=== PATIENT | female | born 1985 | race Caucasian/White ===

== ENCOUNTER → 2022-01-09 13:44 | Outpatient (CLI) | payer OTHER, SELFPAY ==
--- NOTE | 2022-01-09 13:49 | DI.US.S_ITS ---
PROCEDURE: US OB <= 14 WEEKS FETUS INDICATIONS: DATING AND VIABILITY OUTSIDE/PRIOR DATING DATA: Last menstrual period (LMP): 10/25/2021. LMP-based estimated date of delivery (BETTYE): 08/01/2022. First dating scan (date and location): 01/09/2022. Estimated date of delivery (BETTYE) from first dating scan: 08/01/2022 The calculations are made using the ultrasound BETTYE of 08/01/2022. TECHNIQUE: Real-time scanning was performed of the fetus and maternal pelvic organs, with image documentation. Endovaginal scanning was also performed to better visualize the fetus and maternal ovaries. COMPARISON: None. FINDINGS: Gestational sac at the uterine fundus with mean diameter of 5 centimeters. Fetus in the gestational sac measures 4 centimeters crown-rump length. heart rate 169 beats per minute. Yolk sac noted. Ovaries normal. IMPRESSION: Single live intrauterine gestation, estimated gestational age 10 weeks 6 days. We strive to produce accurate, complete, and clear reports of imaging services. To assist us in improving patient care, this report was composed using standard report templates and voice recognition software. Therefore, it may contain abnormal punctuation, insertions and/or omissions. Occasional wrong-word or sound-alike substitutions may occur. Though we review the report and make efforts to correct it, we do recommend that the report be read carefully in proper context to recognize any text inaccuracies. Dictated by: Taye Rossi M.D. on 01/09/2022 at 15:04 Approved by: Taye Rossi M.D. on 01/09/2022 at 15:06
[2022-01-09 15:03] LABS: Add Manual Diff / Slide Review NO; Basophils Absolute Auto 100 /uL (0-100); Basophils Percent Auto 0.6 % (0-2); Eosinophils Absolute Auto 100 /uL (0-450); Eosinophils Percent Auto 1.1 % (2-4); Hemoglobin 14.7 g/dL (12.0-16.0); Lymphocytes Absolute Auto 2700 /uL (1100-4500); Lymphocytes Percent Auto 31.6 % (25-40); Mean Corpuscular HGB Conc 34.1 % (30-36); Mean Corpuscular Hemoglobin 31.7 PG (26-34); Mean Corpuscular Volume 93.2 fL (80-100); Monocytes Absolute Auto 700 /uL (0-900); Monocytes Percent Auto 7.6 % (3-14); Neutrophils Absolute Auto 5100 /uL (1500-7000); Neutrophils Percent Auto 59.1 % (50-75); Platelet Count 419 X10^3/uL (150-400); Red Blood Cell Count 4.62 X10^6/uL (4.0-5.2); Red Cell Distribution Width 12.5 % (11.6-14.8); White Blood Cell Count 8.6 X10^3/uL (4.5-11.0)
[2022-01-09 15:23] LABS: Appearance Urine UA CLEAR; Bilirubin Urine UA NEGATIVE (NEGATIVE); Color Urine UA YELLOW; Glucose Urine UA NEGATIVE (Negative); Ketones Urine UA NEGATIVE (NEGATIVE); Leukocyte Esterase Urine UA NEGATIVE (NEGATIVE); Nitrite Urine UA NEGATIVE (Negative); Occult Blood Urine UA 1+ (Negative); Protein Urine UA NEGATIVE (Negative); Urobilinogen Urine UA 0.2 E.U./dL (0.2)
[2022-01-09 15:24] LABS: pH Urine UA 6.5 (4.5-8.0)
[2022-01-09 15:33] LABS: Bacteria Urine Few (2-10); RBC Urine 1-5/HPF (0-5/HPF); Squamous Epithelial Cell Urine 1-5 /HPF (0-5/HPF); WBC Urine None Seen (0-5/HPF)
[2022-01-09 18:02] LABS: TSH w/ Reflex to FT4 2.09 uIU/mL (0.47-4.68)
[2022-01-09 18:33] LABS: Hepatitis B Surface Antigen NEGATIVE s/c (NEGATIVE)
[2022-01-09 19:25] LABS: HIV 1 & 2 Ab/Ag 4th Gen Combo NEGATIVE (NEGATIVE); Hep C Virus Ab w/Reflex Quant NEGATIVE s/c (NEGATIVE)
[2022-01-10 08:11] LABS: RPR Screen Non Reactive (Non Reactive); Varicella IgG Antibody <135 index (Immune >165)
== END ==
PROVIDERS: PCP Student in an Organized Health Care Education/Training Program; Referring Provider Obstetrics & Gynecology; Visit Provider Obstetrics & Gynecology
DX: O99.281 Endocrine, nutritional and metabolic diseases complicating pregnancy, first trimester (principal); E03.9 Hypothyroidism, unspecified; Z3A.10 10 weeks gestation of pregnancy
CPT/HCPCS: 36415; 76801; 76817; 80055; 81003; 81015; 84443; 86787; 86803; 86850; 86900; 86901; 87086; 87389

== ENCOUNTER → 2022-02-21 15:57 | Outpatient (CLI) | payer OTHER, SELFPAY ==
[2022-02-25 20:40] LABS: AFP, Serum 76.8 ng/mL (.); Estriol, Free 1.63 ng/mL (.); Inhibin A, Dimeric 119.44 pg/mL (.); Inhibin A, MoM 0.91 (.); Maternal Ethnicity Caucasian (.); Maternal Weight 191 lbs (.); Number of Fetuses No (.); OSBR Risk 1 IN 482 (.); Results Report (.); Test Results *Screen Negative* (.); hCG, MoM 1.13 (.); hCG, Serum 33026 mIU/mL (.)
== END ==
PROVIDERS: PCP Student in an Organized Health Care Education/Training Program; Referring Provider Obstetrics & Gynecology; Visit Provider Obstetrics & Gynecology
DX: Z34.92 Encounter for supervision of normal pregnancy, unspecified, second trimester (principal); Z3A.17 17 weeks gestation of pregnancy
CPT/HCPCS: 36415; 82105; 82677; 84702; 86336

== ENCOUNTER → 2022-03-18 07:38 | Outpatient (CLI) | payer OTHER, SELFPAY ==
--- NOTE | 2022-03-18 07:41 | DI.US.S_ITS ---
PROCEDURE: OB >= 14 WEEKS FETUS INDICATIONS: ANATOMY OUTSIDE/PRIOR DATING DATA: Last menstrual period (LMP): 10/25/2021 LMP-based estimated date of delivery (BETTYE): 08/01/2022. First dating scan (date and location): 01/09/2022 Estimated date of delivery (BETTYE) from first dating scan: 08/01/2022. TECHNIQUE: Real-time scanning was performed of the fetus, with image documentation and biometric measurements. Endovaginal scanning: Not indicated. COMPARISON: [facility], OB <= 14 WEEKS FETUS, 01/09/2022, 13:59. FINDINGS: General: A single living intrauterine gestation is present. Presentation: Vertex Placenta: Placental position is posterior, without previa. Amniotic fluid index: 11.6 cm, normal range is 5-24 cm. Single deepest vertical pocket is 3.3 cm. heart rate: 141 beats per minute. Maternal cervical canal: 4.8 cm long. Normal lower limit is 2.5 cm. biometrics: Biparietal diameter: 4.8 cm, 20 weeks, 3 days. Head circumference: 17.1 cm, 19 weeks, 5 days. Abdominal circumference: 15.4 cm, 20 weeks, 4 days. Femur length: 3.4 cm, 20 weeks, 5 days. Clinically estimated gestational age: 20 weeks, 4 days. Composite gestational age from present scan: 20 weeks, 3 days. Estimated weight and percentile: 360 g, 43%. Anatomic survey: Neuro: Ventricles are non-dilated at less than 10 mm. Cisterna magna is normal at 3-11 mm. Cerebellum is normal in size and morphology. Nuchal skin fold: Normal at less than 6 mm between 14-21 weeks gestational age. Face: Nose and lips, facial profile are not well seen. Spine: No evidence for spina bifida. Heart: 4-chambered heart is present. Possible echogenic focus is seen within left ventricular outflow tract. Right ventricular outflow tract is not well seen. Diaphragm: Diaphragm is intact. Stomach: Left-sided stomach is present. Kidneys: No hydronephrosis. Normal is less than 5 mm in 2nd trimester, less than 7 mm in 3rd trimester. Cord: 3-vessel cord has orthotopic insertion. Bladder: Normal in size. Extremities: All 4 extremities identified. IMPRESSION: 1. Single live intrauterine gestation with fetus in vertex presentation. heart rate is 141 beats per minute. Normal amount of amniotic fluid. Normal growth. Estimated weight is at 43%. 2. facial profile and right ventricular outflow tracts are not well seen on this study due to position. Possible echogenic focus within left ventricular outflow tract. 3. Rest of the anatomic survey is within normal limits. We strive to produce accurate, complete, and clear reports of imaging services. To assist us in improving patient care, this report was composed using standard report templates and voice recognition software. Therefore, it may contain abnormal punctuation, insertions and/or omissions. Occasional wrong-word or sound-alike substitutions may occur. Though we review the report and make efforts to correct it, we do recommend that the report be read carefully in proper context to recognize any text inaccuracies. Dictated by: Chema Austin M.D. on 03/18/2022 at 10:18 Approved by: Chema Austin M.D. on 03/18/2022 at 10:21
== END ==
PROVIDERS: PCP Student in an Organized Health Care Education/Training Program; Referring Provider Obstetrics & Gynecology; Visit Provider Obstetrics & Gynecology
DX: Z34.82 Encounter for supervision of other normal pregnancy, second trimester (principal); Z3A.20 20 weeks gestation of pregnancy
CPT/HCPCS: 76811

== ENCOUNTER → 2022-04-03 14:08 | Outpatient (CLI) | payer OTHER, SELFPAY ==
--- NOTE | 2022-04-03 14:09 | DI.US.S_ITS ---
PROCEDURE: US OB FOLLOW UP INDICATIONS: RE-EVALUATE ANATOMY OUTSIDE/PRIOR DATING DATA: Last menstrual period (LMP): 10/25/2021. LMP-based estimated date of delivery (BETTYE): 08/01/2022. First dating scan (date and location): 01/09/2022 at . Estimated date of delivery (BETTYE) from first dating scan: 08/01/2022. TECHNIQUE: Real-time scanning was performed of the fetus, with image documentation and biometric measurements. Endovaginal scanning: Not performed. COMPARISON: [facility], OB >= 14 WEEKS FETUS, 03/18/2022, 8:00. [facility], OB <= 14 WEEKS FETUS, 01/09/2022, 13:59. FINDINGS: General: A single living intrauterine gestation is present. Presentation: Vertex. Placenta: Placental position is posterior , without previa. Amniotic fluid index: 18.5 cm, normal range is 5-24 cm. Single deepest vertical pocket is 5.9 cm. heart rate: 141 beats per minute. Maternal cervical canal: 3.2 cm long. Normal lower limit is 2.5 cm. biometrics: Not performed Clinically estimated gestational age: 22 weeks 6 days Other: There is a four-chamber heart. There is a 3 mm echogenic focus in left ventricle. Normal left ventricular outflow tracts. facial profile not well seen secondary to lie. IMPRESSION: 1. A single living intrauterine gestation redemonstrated. 2. A 3 mm echogenic focus in left ventricle. Otherwise normal heart. 3. facial profile not well seen. 4. GERALD 18.5 cm. We strive to produce accurate, complete, and clear reports of imaging services. To assist us in improving patient care, this report was composed using standard report templates and voice recognition software. Therefore, it may contain abnormal punctuation, insertions and/or omissions. Occasional wrong-word or sound-alike substitutions may occur. Though we review the report and make efforts to correct it, we do recommend that the report be read carefully in proper context to recognize any text inaccuracies. Dictated by: Dino Brantley M.D. on 04/03/2022 at 17:06 Approved by: Dino Brantley M.D. on 04/03/2022 at 17:12
== END ==
PROVIDERS: PCP Student in an Organized Health Care Education/Training Program; Referring Provider Obstetrics & Gynecology; Visit Provider Obstetrics & Gynecology
DX: Z34.90 Encounter for supervision of normal pregnancy, unspecified, unspecified trimester (principal); Z3A.21 21 weeks gestation of pregnancy
CPT/HCPCS: 76816

== ENCOUNTER → 2022-05-20 08:50 | Outpatient (CLI) | payer OTHER, SELFPAY ==
[2022-05-20 15:23] LABS: Urine N gonorrhoeae NOT DETECTED
[2022-05-20 17:36] LABS: Urine Chlamydia NOT DETECTED
== END ==
PROVIDERS: PCP Student in an Organized Health Care Education/Training Program; Visit Provider Obstetrics & Gynecology
DX: Z34.83 Encounter for supervision of other normal pregnancy, third trimester (principal); Z3A.29 29 weeks gestation of pregnancy
CPT/HCPCS: 87491; 87591

== ENCOUNTER → 2022-06-05 14:01 | Outpatient (CLI) | payer OTHER, SELFPAY ==
[2022-06-05 15:29] LABS: Hematocrit 38.5 % (36-46); Hemoglobin 12.9 g/dL (12.0-16.0)
[2022-06-05 15:41] LABS: GTT (PREG) 1 Hour PP 50gm Dose 171 mg/dL (76-139)
[2022-06-05 16:10] LABS: Thyroid Stimulating Hormone 0.741 uIU/mL (0.47-4.68)
== END ==
PROVIDERS: PCP Student in an Organized Health Care Education/Training Program; Referring Provider Obstetrics & Gynecology; Visit Provider Obstetrics & Gynecology
DX: O99.280 Endocrine, nutritional and metabolic diseases complicating pregnancy, unspecified trimester (principal); E03.9 Hypothyroidism, unspecified; Z3A.26 26 weeks gestation of pregnancy
CPT/HCPCS: 36415; 82950; 84443; 85014; 85018

== ENCOUNTER → 2022-06-10 09:49 | Outpatient (CLI) | payer OTHER, SELFPAY ==
[2022-06-10 10:37] LABS: Glucose Fasting Gestational 86 mg/dL (76-95)
[2022-06-10 12:23] LABS: Glucose 1 Hour Gest 175 mg/dL (76-180)
[2022-06-10 13:02] LABS: Glucose 2 Hour Gest 161 mg/dL (76-155)
[2022-06-10 13:05] LABS: Glucose Tol Interp,Gestational INTERPRETATION
[2022-06-10 15:04] LABS: Glucose 3 Hour Gest 134 mg/dL (76-140)
== END ==
PROVIDERS: PCP Student in an Organized Health Care Education/Training Program; Referring Provider Obstetrics & Gynecology; Visit Provider Obstetrics & Gynecology
DX: O99.810 Abnormal glucose complicating pregnancy (principal)
CPT/HCPCS: 36415; 82951; 82952

== ENCOUNTER → 2022-07-09 16:06 | Outpatient (CLI) | payer OTHER, SELFPAY ==
[2022-07-10 11:09] LABS: Strep Grp B PCR POS for Grp B Strep
== END ==
PROVIDERS: PCP Student in an Organized Health Care Education/Training Program; Visit Provider Obstetrics & Gynecology
DX: Z36.85 Encounter for antenatal screening for Streptococcus B (principal); Z3A.36 36 weeks gestation of pregnancy
CPT/HCPCS: 87653

== ENCOUNTER 2022-08-03 04:43 | Inpatient (IN) | payer OTHER, SELFPAY ==
[2022-08-03] MEDS: LACTATED RINGERS 1,000 ML 100 ML IV (05:45)
[2022-08-03 06:15] LABS: Add Manual Diff / Slide Review NO; Basophils Absolute Auto 0 /uL (0-100); Basophils Percent Auto 0.4 % (0-2); Eosinophils Absolute Auto 0 /uL (0-450); Eosinophils Percent Auto 0.2 % (2-4); Hematocrit 45.4 % (36-46); Hemoglobin 15.7 g/dL (12.0-16.0); Lymphocytes Absolute Auto 2500 /uL (1100-4500); Lymphocytes Percent Auto 21.2 % (25-40); Mean Corpuscular HGB Conc 34.6 % (30-36); Mean Corpuscular Hemoglobin 33.1 PG (26-34); Mean Corpuscular Volume 95.7 fL (80-100); Monocytes Absolute Auto 900 /uL (0-900); Monocytes Percent Auto 7.3 % (3-14); Neutrophils Absolute Auto 8400 /uL (1500-7000); Neutrophils Percent Auto 70.9 % (50-75); Platelet Count 290 X10^3/uL (150-400); Red Blood Cell Count 4.75 X10^6/uL (4.0-5.2); Red Cell Distribution Width 13.7 % (11.6-14.8); White Blood Cell Count 11.9 X10^3/uL (4.5-11.0)
[2022-08-03 06:24] LABS: COVID19 -Nasal RAPID Negative (Negative)
[2022-08-03] MEDS: FENT 2MCG/ML BUPIV 0.125% EPI 200 MCG/100 ML PLAST..BAG 12 MCG EPIDURAL ×3 (06:40→21:02)
[2022-08-03] MEDS: PENICILLIN G POTASSIUM 5,000,000 UNIT in DEXTROSE 5% IN WATER 250 ML 250 UNIT IV (07:57)
[2022-08-03 10:42] VITALS: BP 110/75
[2022-08-03] MEDS: PENICILLIN G POTASSIUM 3,000,000 UNIT/50 ML FROZ.PIGGY 100 UNIT IV ×3 (11:57→20:06)
--- NOTE | 2022-08-03 12:22 | PM.OBHP.IH.1 ---
OB HPI Date/Time Date of admission: 08/03/22 Date Patient Seen: 08/03/22 Time Patient Seen: 08:30 History of Present Condition Chief complaint: Term , early labor Date of Last Menstrual Period: 10/25/21 BETTYE Calculator Estimated Delivery Date Method Current WG Current Estimate 08/01/22 LMP (Certain) 40w 2d Other Estimates 08/01/22 Ultrasound #1 40w 2d Estimated Gestational Age (weeks): 40w2d : 2 Para: 0 Narrative: care: good care Dating criteria OB: LMP confirmed by 1st trimester US Ultrasounds: normal mid trimester US Obstetrical complications: other (elevated 1-hr GTT, elevated reading x1 for 3-hr GTT ) Medical complications OB: other (hypothyroidism, taking levothyroxine daily) External History : 2 Para: 0 Estimated Date of Delivery: 08/01/22 Narrative: History of SAB x 1 Indications Other reason(s) for admission: Arrived in early labor with painful contractions that began approx 0345. Intact membranes. Preadmission Labs Last OB Lab Results: Blood Type O Positive 08/03/22 05:40 Antibody Screen Negative 08/03/22 05:40 Hematocrit 45.4 % (36-46) 08/03/22 05:40 Hemoglobin 15.7 g/dL (12.0-16.0) 08/03/22 05:40 Hepatitis B Surface Antigen Negative s/c (NEGATIVE) 01/09/22 14:39 Hepatitis C Antibody Negative s/c (NEGATIVE) 01/09/22 14:39 Rubella Antibody 141.0 IU/mL (>15) 01/09/22 14:39 Varicella-Zoster IgG Antibody <135 index (Immune >165) L 01/09/22 14:39 Glucose 1 Hour 171 mg/dL (76-139) H 06/05/22 15:08 Group B Streptococcus (PCR) Pos for grp b strep H 07/09/22 16:06 Prior (ies) Past Pregnancies Del. Date GA/Weeks Labor Lgth Wt Sex Route Outcome Anesthesia Place Delv Breastfeed Preg Comp Name 02/02/08 10 spontaneous Evaluation Evaluation Baseline heart rate: 140 Variability: Moderate (11-25) monitor accelerations: Absent Monitor Decelerations: Absent Uterine Contraction Intensity: Strong/Firm Status: Category l Dilation (cm): 2 Effacement (%): 100 Dilation: 1-2 cm Effacement: >/=80% station: -1 Position of cervix: mid Consistency: soft Dillon score: 9 Comments: Contractions: every 4-8 minutes [facility] Medical History Hypothyroid Kidney stone Surgical History History of lithotripsy History of removal of cyst Status post breast reduction Family History Mother Hypothyroid Graves disease Skin cancer Grandmother Hypothyroid Heart disease Alzheimers disease Grandfather Hypothyroid Bipolar 1 disorder, depressed, severe Father Hypertension Hypothyroid Social History marital status: household members: spouse lives independently: Yes housing: house pets and animals: Yes (2 dogs ) education level: college occupational status: employed current occupational exposures/hazards: No special miguel angel needs: No travel history: over 6 months ago seatbelt use: always helmet use: Yes water heater temp set < 120 deg: Yes (Will check and adjust as needed ) working smoke detector in home: Yes fire extinguisher in home: Yes carbon monox detector in home: Yes firearms in home: Yes firearms unloaded and locked: Yes do you feel safe at home: Yes Smoking Status: Never smoker second hand exposure: No alcohol intake: former substance use type: does not use during the past year weight has: decreased > 10 lbs well-balanced diet: daily or most days daily servings fruits/ve-4 caffeine: Yes (limits to 25mg/day) Type(s) of exercise: walking and other frequency: daily Meds Home Medications and Allergies Home Medications Medication Instructions Recorded Confirmed Type levothyroxine 100 mcg capsule 112 mcg PO DAILY 01/13/22 08/03/22 History omega 0-uok-jek-fish oil 1,000 mg 1 cap PO DAILY 01/13/22 08/03/22 History (120 mg-180 mg) capsule (Fish Oil) prenat.vits,fidel,mcc-hvff-mnsbp 1 tab PO DAILY 01/13/22 08/03/22 History blood sugar diagnostic (Blood #100 ea 06/26/22 08/03/22 Rx Glucose Test strips) blood-glucose meter #1 ea 06/26/22 08/03/22 Rx lancets #100 ea 06/26/22 08/03/22 Rx Allergies Allergy/AdvReac Type Severity Reaction Status Date / Time sertraline Allergy Severe Anaphylaxis Verified 08/03/22 05:47 sumatriptan [From Imitrex] Allergy Severe Anaphylaxis Verified 08/03/22 05:47 Review of Systems Review of Systems Narrative: Pertinent ROS: full systems reviewed; all negative except as specified OB Exam Vital signs Blood Pressure: 119/84 Pulse Rate: 76 Respiratory Rate: 16 Temperature: 96.8 F Narrative Exam Narrative: Well-appearing. Calm, comfortable with epidural. Resp Effort & Inspection: normal respiratory effort Cardio Rate: regular rate Rhythm: regular rhythm Heart Sounds: S1 normal and S2 normal Other: No clicks, gallops, or murmurs Extremities Lower extremity: Yes normal to inspection DTR's: Rt Patellar: 0 (no clonus) and Lt Patellar: 0 (no clonus) GI Inspection: normal to inspection and other (gravid) Other: EFW 8lbs Objective Labs Result Diagrams: 08/03/22 05:40 Labs: Laboratory Results - last 24 hr 08/03/22 08/03/22 08/03/22 05:40 05:40 05:55 WBC 11.9 H RBC 4.75 Hgb 15.7 Hct 45.4 MCV 95.7 MCH 33.1 MCHC 34.6 RDW 13.7 Plt Count 290 Neut % (Auto) 70.9 Lymph % (Auto) 21.2 L Cannon % (Auto) 7.3 Eos % (Auto) 0.2 L Baso % (Auto) 0.4 Neut # (Auto) 8400 H Lymph # (Auto) 2500 Cannon # (Auto) 900 Eos # (Auto) 0 Baso # (Auto) 0 SARS-CoV-2 (PCR) Negative Blood Type O Positive Antibody Screen Negative Assessment and Plan Assessment and Plan Assessment and Plan narrative: ASSESSMENT: 36 yo at 40w2d Early labor GBS positive FHR Cat [address] Rh pos Varicella non-immune Rubella immune Hypothyroid PLAN: Admit to hospital. Insert PIV and draw labs: CBC, ABO/Rh Plan PCN for GBS prophylaxis. Continuous EFM. Continue levothyroxine daily Anticipate . Time Spent with Patient Total time spent with greater than 50% in coordination of care (as documented) at patient's floor/unit and/or counseling patient:: 25 - 35 minutes
[2022-08-03] MEDS: OXYTOCIN PREMIX 30 UNIT/500 ML PLAST..BAG IV (12:38)
[2022-08-03 13:02] VITALS: BP 119/84; PULSE 76; RESP 16; TEMP 36
--- NOTE | 2022-08-03 13:57 | PM.OBPNLAB ---
Date/Time Date Patient Seen: 08/03/22 Time Patient Seen: 10:20 Pain Control Pain control: epidural Pelvic Exam Dilation (cm): 4 Effacement (%): 100 station: -1 Amniotic membrane status: Ruptured (AROM, clear fluid, 1024) Contractions Date/Time contractions began: 64408/03/22 Monitor mode: External Contraction pattern: Irregular Contraction intensity: Strong/Firm Status status: Category l Heart Rate Baseline: 135 Monitor Accelerations: Present Monitor Decelerations: Absent Monitor Variability: Moderate Assessment and Plan Comments: Assessment in early labor ROM GBS pos Rh pos FHR Cat 1 Plan: AROM now Consider pitocin augmentation PRN Anticipate .
--- NOTE | 2022-08-03 14:01 | PM.OBPNLAB ---
Date/Time Date Patient Seen: 08/03/22 Time Patient Seen: 12:30 Pain Control Pain control: epidural Pelvic Exam Dilation (cm): 4 Effacement (%): 100 station: -1 Amniotic membrane status: Ruptured (AROM, clear fluid, 1024) Comments: not rexamined Contractions Monitor mode: External Contraction pattern: Irregular (via toco) Contraction intensity: Strong/Firm Status status: Category l Heart Rate Baseline: 135 Monitor Accelerations: Present Monitor Decelerations: Absent Monitor Variability: Moderate Assessment and Plan Comments: Assessment in early labor GBS pos, adequately treated Plan: Pitocin augmentation r/to irregular contraction pattern Anticipate
[2022-08-03] MEDS: diphenhydrAMINE 50 MG/ML VIAL 25 MG IV (20:01)
--- NOTE | 2022-08-03 20:22 | PM.OBPNLAB ---
Date/Time Date Patient Seen: 08/03/22 Time Patient Seen: 17:00 Pain Control Pain control: epidural (comfortable) Pelvic Exam Dilation (cm): 7 Effacement (%): 100 station: -1 Amniotic membrane status: Ruptured (AROM, clear fluid, 1024) Contractions Monitor mode: External Pitocin rate (mU/min): 6 Contraction frequency (min): 2 Contraction duration (min): 60 Contraction pattern: Regular (via toco) Contraction intensity: Strong/Firm Status status: Category l Heart Rate Baseline: 145 Monitor Accelerations: Present Monitor Decelerations: Variable (non-recurrent, mild) Monitor Variability: Moderate Assessment and Plan Assessment: active labor Plan: continuous present management Comments: GBS positive, adequate treatment
[2022-08-04] MEDS: PENICILLIN G POTASSIUM 3,000,000 UNIT/50 ML FROZ.PIGGY 100 UNIT IV ×3 (01:41→10:00)
[2022-08-04] MEDS: LACTATED RINGERS 1,000 ML 100 ML IV ×2 (01:42→06:04)
[2022-08-04] MEDS: FENT 2MCG/ML BUPIV 0.125% EPI 200 MCG/100 ML PLAST..BAG 12 MCG EPIDURAL (02:53)
--- NOTE | 2022-08-04 02:53 | PM.OBPNLAB ---
Date/Time Date Patient Seen: 08/04/22 Time Patient Seen: 02:53 Pain Control Pain control: epidural Comments: Emy became tearful during repositioning due to hip pain. Requesting better anesthesia. Having severe pain in left hip. Epidural not covering it. Repositioning to either side does not help. Also feeling baby kicking more in right upper abdomen. Nauseated. Exquisite tenderness with abdominal exam; reports this has been true since admission and worsening. Pelvic Exam Dilation (cm): 7 Effacement (%): 90 station: -1 Amniotic membrane status: Ruptured (AROM, clear fluid, 1024) Comments: Caput noted on vertex. Vertex ROT. Anterior portion of cervix with mild edema, approx 0.5 cm long. Internal temperature felt warm on exam Contractions Date/Time contractions began: 08/03/2022 at 0345 Monitor mode: External Pitocin rate (mU/min): 3 Contraction frequency (min): 2 Contraction pattern: Regular (via toco) Contraction intensity: Strong/Firm Status status: Category ll Heart Rate Baseline: 150 Monitor Accelerations: Absent Monitor Decelerations: Variable Monitor Variability: Moderate Assessment and Plan Assessment: active labor Comments: ASSESSMENT: Prolonged active phase of labor Contractions difficult to trace Increased pain without relief ROM x 17 hours, clear fluid, afebrile FHR Cat II GBS positive, adequately treated Decreased urine output Tender abdomen PLAN: Call anesthesia for pain control Give fluid bolus and monitor urine output closely PIH panel and CBC wtih diff r/to decreased urine output, abdominal tenderness Place IUPC for improved contraction tracing and pitocin titration Continue PCN administration protocol Reassess in 2-3 hours after adequate contraction tracing
[2022-08-04 03:48] LABS: Add Manual Diff / Slide Review NO; Basophils Absolute Auto 100 /uL (0-100); Basophils Percent Auto 0.4 % (0-2); Eosinophils Absolute Auto 0 /uL (0-450); Hematocrit 40.5 % (36-46); Hemoglobin 13.9 g/dL (12.0-16.0); Lymphocytes Absolute Auto 1100 /uL (1100-4500); Lymphocytes Percent Auto 5.3 % (25-40); Mean Corpuscular HGB Conc 34.3 % (30-36); Mean Corpuscular Hemoglobin 33.1 PG (26-34); Mean Corpuscular Volume 96.4 fL (80-100); Monocytes Absolute Auto 1400 /uL (0-900); Monocytes Percent Auto 6.8 % (3-14); Neutrophils Absolute Auto 17800 /uL (1500-7000); Neutrophils Percent Auto 87.5 % (50-75); Platelet Count 266 X10^3/uL (150-400); Red Cell Distribution Width 13.6 % (11.6-14.8); White Blood Cell Count 20.4 X10^3/uL (4.5-11.0)
[2022-08-04 03:57] LABS: Uric Acid 7.8 mg/dL (2.5-6.2)
[2022-08-04 03:58] LABS: Alanine Aminotransferase 32 IU/L (<35); Alkaline Phosphatase 174 U/L (38-126); Aspartate Aminotransferase 46 IU/L (14-36); BUN Creatinine Ratio 16.5 (6-22); Bilirubin Total 0.8 mg/dL (0.2-1.3); Blood Urea Nitrogen 34 mg/dL (7-17); Calcium 8.6 mg/dL (8.4-10.2); Carbon Dioxide 20 mmol/L (22-32); Chloride 101 mmol/L (98-107); Estimated Glomerular Filt Rate 32 mL/min (>60); Glucose 92 mg/dL (70-100); Potassium 4.7 mmol/L (3.4-5.1); Sodium 132 mmol/L (137-145); Total Protein 6.6 g/dL (6.3-8.2)
[2022-08-04] MEDS: ePHEDrine 50 MG/ML VIAL 10 MG IV (06:33)
--- NOTE | 2022-08-04 06:47 | PM.OBPNLAB ---
Date/Time Date Patient Seen: 08/03/22 Time Patient Seen: 20:45 Pain Control Pain control: epidural Comments: Emy is comfortable with epidural. Tired, sleeping when she can. Pelvic Exam Dilation (cm): 5 Effacement (%): 80 station: -1 Amniotic membrane status: Ruptured (AROM, clear fluid, 1024) Comments: RN exam - per RN, cervix has lots of edema Contractions Monitor mode: External Contraction frequency (min): 2 Contraction duration (min): 60 Contraction pattern: Regular (via toco) Contraction intensity: Strong/Firm Status status: Category l Heart Rate Baseline: 145 Monitor Accelerations: Absent Monitor Decelerations: Absent Monitor Variability: Moderate Assessment and Plan Assessment: induction ongoing Plan: continuous present management Comments: IV benadryl to manage cervical edema
--- NOTE | 2022-08-04 06:53 | PM.OBPNLAB ---
Date/Time Date Patient Seen: 08/04/22 Time Patient Seen: 06:45 Pain Control Pain control: epidural Comments: Spinal epidural in place r/to difficulty managing pain. Pelvic Exam Effacement (%): 80 station: -1 Amniotic membrane status: Ruptured (AROM, clear fluid, 1024) Comments: MVU 100 Contractions Monitor mode: External Contraction frequency (min): 3 Contraction duration (min): 80 Contraction pattern: Regular (via toco) Contraction intensity: Strong/Firm Status status: Category l Assessment and Plan Assessment: active labor Comments: Turn over care to Dr. Rossi Schmitz for exam and follow up care. Review abnormal labs: creatinine 2.06 and uric acid 7.8; other PIH panel labs WNL Elevated WBCs of >20.4 up from 11.9 on admission Low urine output. Normotensive GBS positive, adequate treatment
[2022-08-04] MEDS: FENT 2MCG/ML BUPIV 0.125% EPI 200 MCG/100 ML PLAST..BAG 8 MCG EPIDURAL (08:00)
[2022-08-04] MEDS: ALBUMIN HUMAN 25 GM/100 ML VIAL IV (12:05)
--- NOTE | 2022-08-04 12:41 | PM.OBPRVD ---
Events: Labor Augmentation Labor & Delivery Delivery date: 08/04/22 Intrapartal Events: Anesthetic Complications (Inadequate pain control) Cervical ripening method: none Induction method: none Delivery augmentation: rupture of membranes and pitocin Delivery monitor: external FHT and external uterine Route of delivery: vacuum extraction Indication for instrumentation: other ( tachycardia, inadequate pain control) Episiotomy description: None L&D Laceration Description: Perineal - 3rd Degree (partial third) and Labial (2nd degree right labial) Delivery repair: vicryl and chromic Quantitative Blood Loss: 800 Anesthesia Type: Spinal and Epidural Complications: Vaginal septum seen after the delivery 20sec shoulder dystocia Narrative: Patien complete and pushed for 2 1/2 hours. A vaccuum was placed due to tachycardia and inadequate pain control. At 1145 am., a live female infant delivered spontaneously over an intact perineum. The vacuum was used with 2 contractions. The vacuum was removed. There was a 20 second shoulder dystocia which was relieved with Darshan and suprapubic pressure. The infant was placed on mom's abdomen. The cord was double clamped and cut after several minutes. Cord bloods were obtained. Pitocin was given in the IV fluids. The placenta delivered intact with a 3 vessel cord at 1153 am. The fundus was massaged to firm. A partial third-degree perineal laceration was repaired with 0 Vicryl on the capsule of the sphincter. 2-0 Vicryl in the vagina and on the perineum. Two 0 chromic on the skin. 3-0 Vicryl on the right labial laceration. An in and out catheter was performed of very dark, concentrated, 50 cc of urine. At the time of the repair there was a piece of tissue that appeared to be a septum that had partially come loose during the delivery. This was hemostatic. QBL 800 cc. Apgars 8 at 1 minute and 9 at 5 minutes. Epidural/spinal analgesia. Mom and stable to recovery. Due to the decreased urine output. 25 g of albumin was given IV followed by 20 mg of IV Lasix. [place] Baby 1: Infant gender: Female Presentation: vertex Position: Right Occiput Transverse Placenta delivery description: Spontaneous Cord Vessel Description: 3 Vessels and Clamped/Cut score (1 min): 8 score (5 min): 9 weight: 7 lb 7 oz Plan for aftercare: Routine care
[2022-08-04] MEDS: ACETAMINOPHEN 325 MG TABLET 650 MG PO ×2 (14:27→21:26)
[2022-08-04] MEDS: IBUPROFEN 600 MG TABLET PO ×2 (14:27→21:26)
[2022-08-04] MEDS: FUROSEMIDE 40 MG/4 ML VIAL 20 MG IV (14:28)
[2022-08-04] MEDS: DERMOPLAST SPRAY 20% 60 ML 1 SPRAY TOP (14:28)
[2022-08-04] MEDS: KCL 20 MEQ IN NS 1,000 ML 100 MEQ IV (14:40)
[2022-08-04 17:02] LABS: Add Manual Diff / Slide Review NO; Basophils Absolute Auto 100 /uL (0-100); Basophils Percent Auto 0.2 % (0-2); Eosinophils Absolute Auto 0 /uL (0-450); Hematocrit 31.5 % (36-46); Hemoglobin 10.7 g/dL (12.0-16.0); Lymphocytes Absolute Auto 1300 /uL (1100-4500); Lymphocytes Percent Auto 4.7 % (25-40); Mean Corpuscular HGB Conc 33.9 % (30-36); Mean Corpuscular Hemoglobin 32.7 PG (26-34); Mean Corpuscular Volume 96.3 fL (80-100); Monocytes Absolute Auto 1500 /uL (0-900); Monocytes Percent Auto 5.1 % (3-14); Neutrophils Absolute Auto 25500 /uL (1500-7000); Platelet Count 253 X10^3/uL (150-400); Red Blood Cell Count 3.27 X10^6/uL (4.0-5.2); Red Cell Distribution Width 13.5 % (11.6-14.8); White Blood Cell Count 28.4 X10^3/uL (4.5-11.0)
[2022-08-04 17:13] LABS: Alanine Aminotransferase 27 IU/L (<35); Alkaline Phosphatase 110 U/L (38-126); Aspartate Aminotransferase 45 IU/L (14-36); BUN Creatinine Ratio 17.7 (6-22); Bilirubin Total 0.5 mg/dL (0.2-1.3); Blood Urea Nitrogen 33 mg/dL (7-17); Calcium 8.6 mg/dL (8.4-10.2); Carbon Dioxide 18 mmol/L (22-32); Chloride 103 mmol/L (98-107); Estimated Glomerular Filt Rate 36 mL/min (>60); Glucose 155 mg/dL (70-100); Potassium 4.4 mmol/L (3.4-5.1); Sodium 133 mmol/L (137-145); Total Protein 5.6 g/dL (6.3-8.2); Uric Acid 7.7 mg/dL (2.5-6.2)
--- NOTE | 2022-08-04 18:49 | PM.OBPNLAB ---
Date/Time Date Patient Seen: 08/04/22 Time Patient Seen: 07:00 Pain Control Pain control: epidural (spinal. Pain management issues overnight) Pelvic Exam Dilation (cm): 10 Effacement (%): 100 station: +1 Amniotic membrane status: Ruptured (AROM, clear fluid, 1024) Contractions Contractions on admission: none Monitor mode: External Pitocin rate (mU/min): 5 Contraction frequency (min): 3 Contraction duration (min): 1 Contraction pattern: Regular (via toco) Contraction intensity: Strong/Firm Intrauterine tone measurement: 75 Status status: Category l Heart Rate Baseline: 150 Monitor Accelerations: Present Monitor Decelerations: Absent Monitor Variability: Moderate Assessment and Plan Assessment: active labor Comments: Assessment: Entering second stage of labor Recent Spinal/epidural Significantly decreased urine output overnight Plan: Labor down until patient feeling pressure 1000cc fluid bolus
[2022-08-05] MEDS: ACETAMINOPHEN 325 MG TABLET 650 MG PO ×3 (03:48→15:05)
[2022-08-05] MEDS: IBUPROFEN 600 MG TABLET PO ×3 (03:48→15:04)
[2022-08-05] MEDS: KCL 20 MEQ IN NS 1,000 ML 50 MEQ IV (06:17)
[2022-08-05 06:46] LABS: Add Manual Diff / Slide Review NO; Alanine Aminotransferase 21 IU/L (<35); Alkaline Phosphatase 108 U/L (38-126); Aspartate Aminotransferase 33 IU/L (14-36); BUN Creatinine Ratio 17.8 (6-22); Basophils Absolute Auto 0 /uL (0-100); Basophils Percent Auto 0.1 % (0-2); Bilirubin Total 0.1 mg/dL (0.2-1.3); Blood Urea Nitrogen 26 mg/dL (7-17); Calcium 8.2 mg/dL (8.4-10.2); Carbon Dioxide 21 mmol/L (22-32); Chloride 111 mmol/L (98-107); Eosinophils Absolute Auto 0 /uL (0-450); Eosinophils Percent Auto 0.1 % (2-4); Estimated Glomerular Filt Rate 48 mL/min (>60); Glucose 98 mg/dL (70-100); HEMOLYSIS < 15 (0-50); Hematocrit 28.2 % (36-46); Hemoglobin 9.6 g/dL (12.0-16.0); Lymphocytes Absolute Auto 2000 /uL (1100-4500); Lymphocytes Percent Auto 9.1 % (25-40); Mean Corpuscular HGB Conc 33.9 % (30-36); Mean Corpuscular Hemoglobin 32.7 PG (26-34); Mean Corpuscular Volume 96.5 fL (80-100); Monocytes Absolute Auto 1200 /uL (0-900); Monocytes Percent Auto 5.4 % (3-14); Neutrophils Absolute Auto 19100 /uL (1500-7000); Neutrophils Percent Auto 85.3 % (50-75); Platelet Count 239 X10^3/uL (150-400); Potassium 4.2 mmol/L (3.4-5.1); Red Blood Cell Count 2.92 X10^6/uL (4.0-5.2); Red Cell Distribution Width 13.7 % (11.6-14.8); Sodium 139 mmol/L (137-145); Total Protein 4.8 g/dL (6.3-8.2); Uric Acid 7.5 mg/dL (2.5-6.2); White Blood Cell Count 22.4 X10^3/uL (4.5-11.0)
[2022-08-08 15:37] LABS: Albumin 3.3 g/dL (3.5-5.0); Globulin 3.3 g/dL (1.7-4.1); HEMOLYSIS 27 (0-50)
[2022-08-08 15:47] LABS: Albumin 2.9 g/dL (3.5-5.0); Albumin Globulin Ratio 1.1 (1.0-2.8); Globulin 2.7 g/dL (1.7-4.1); HEMOLYSIS 28 (0-50)
[2022-08-08 16:09] LABS: Albumin 2.3 g/dL (3.5-5.0); Albumin Globulin Ratio 0.9 (1.0-2.8); Globulin 2.5 g/dL (1.7-4.1)
--- NOTE | 2022-09-29 13:24 | PM.OBDS.1 ---
Discharge Providers Provider Date of admission: 08/03/22 04:43 Discharge Date: 08/05/22 Primary care physician: Orquidea Solis MD Consults: 08/03/22 05:45 Consult to Anesthesiology Urgent Comment: Consulting Provider: Anesthesiologist Reason for consultation: labor 08/05/22 12:29 Consult to Miter Operator Routine Comment: Discharge provider: Bridgett Schmitz MD Summary Hospital Course Date Patient Seen: 08/05/22 Time Patient Seen: 13:30 Diagnoses: 40+2 weeks gestation GBS+ Artificial rupture of membranes Low urine output during labor Vacuum assisted vaginal delivery IV antibiotics Partial 3rd degree laceration Right labial laceration Epidural and spinal analgesia Pitocin augmentation of labor Hospital Course: Patient is a 36 year old who presented in early labor on 08/03/22. She was 40+ 2 weeks' gestation and group B strep positive. She was started on antibiotics and received epidural for pain management. She was 2 cm/100% effaced/-1 station. At 10:20 a.m. she had progressed to 4 cm/100%/-1 station. Artificial rupture of membranes was performed with clear amniotic fluid. At 12:30 p.m. she was not changed. Pitocin augmentation was started. At 5:00 p.m. she progressed to 7 cm/100%/-1 station, and she was at 6 carlyle IU of Pitocin. On 08/04 at 2:53 a.m. she was 7 cm still but had severe hip pain. Pitocin was at 3. She had some decreased urine output and labs were ordered and an intrauterine pressure catheter was placed to assess adequacy of contractions. At 6:47 a.m. on 08/04 she was 5 cm/80%/-1 station was given IV Benadryl for cervical swelling. Her labs showed a creatinine of 2.06 and a uric acid of 7.8, but had normal blood pressure. At 7:00 a.m. she was complete and +1 station. After 2-1/2 hours vacuum was placed due to tachycardia an inadequate pain control. Vacuum was applied with 2 contractions. There was a 20 second shoulder dystocia which was relieved with Ms. Babcock suprapubic pressure. She would a partial third-degree laceration and a right labial laceration which were repaired in the usual fashion. There was found to be a piece of tissue in the vagina which was thought to be a septum which had come loose during the delivery. This was hemostatic and left intact. She received 25 g of albumin and 20 of IV Lasix due to the swelling and decreased urine output. She diuresed several L of fluid. Her course was unremarkable. She was discharged home on August 05, 2022. Peripartum Data Delivery Method: Assisted Delivery (Vacuum) Laceration Description: Perineal - 3rd Degree and Labial (right) Episiotomy description: None Procedures: Epidural analgesia Artificial rupture of membranes Pitocin augmentation of labor Spinal analgesia Vacuum assisted vaginal delivery Partial 3rd degree laceration repair Right labial laceration repair GBS antibiotic prophylaxis IV Albumin and IV Lasix complications: other (low urine output) [place] 1: Gender: Female Disposition of : home Status at Discharge Cognitive/behavioral status at discharge: oriented Functional status at discharge: independent ambulation Overall status at discharge: patient is progressing back to baseline Time Spent with Patient Time attestation: Total time spent providing and/or coordinating discharge services: Time spent: Less than 30 minutes Objective Labs 08/05/22 06:13 08/05/22 06:13 Exam Narrative Exam Narrative: Generally: Pt sitting up in bed, holding . Fundus: Firm U-1 Ext: 1+ edema, 1+ DTR Discharge Plan Discharge Plan Patient Disposition: Home Provider Discharge Comment: Call with fever, chills, or bleeding vaginally more than a pad in an hour Ibuprofen 600mg every 6 hours as needed Tylenol 650mg every 6 hours as needed Elevate legs Discharge orders & Medications Prescriptions: Continued prenat.vits,fidel,txo-kepe-[id number] Tablet 1 tab PO DAILY levothyroxine 100 mcg capsule 112 mcg PO DAILY omega 9-stg-jyj-fish oil [Fish Oil] 1,000 mg (120 mg-180 mg) capsule 1 cap PO DAILY No Action (DME) blood-glucose meter Misc See Rx Instructions .ROUTE .MEDSUPPLY Qty: 1 0RF Rx Instructions: Use to check blood sugar 4 x daily and record on log sheet. (DME) lancets Misc See Rx Instructions .ROUTE .MEDSUPPLY Qty: 100 2RF Rx Instructions: Please check fasting and 2 hour post meal (DME) Blood Glucose Test Strip See Rx Instructions .ROUTE .MEDSUPPLY Qty: 100 2RF Rx Instructions: Please check fasting and 2 hour post meal citalopram [Celexa] 10 mg tablet 10 mg PO DAILY Qty: 30 1RF Rx Instructions: Follow up with provider in 2 weeks. hydroxyzine HCl 25 mg tablet 25 mg PO BEDTIME Qty: 30 0RF Follow up/Referrals: Orquidea Solis MD [Primary Care Provider] - Bridgett Schmitz MD [Physician] - 09/16/22 1:45 pm (6 week appointment to discuss surgery) Diet/Activity/Treatments Diet: Regular Activity: Nothing in the vagina for 6 wks. Skin/Wound/Dressing Care Report to your healthcare provider any signs of infection, such as:: chills, fever, increased pain and unusual drainage Visit Report/Discharge Packet Instructions: DI for Labor and Delivery, Vaginal Stand Alone Forms: Discharge: Care, Patient Portal/API, Stroke Signs & Symptoms Discharge Data Primary Care Provider: Orquidea Solis
== END 2022-08-05 15:30 | disposition home or self-care (01) | DRG 768 ==
PROVIDERS: Obstetrics & Gynecology; Admitting Provider Advanced Practice Midwife; PCP Student in an Organized Health Care Education/Training Program; Referring Provider Obstetrics & Gynecology; Visit Provider Advanced Practice Midwife
DX: O99.284 Endocrine, nutritional and metabolic diseases complicating childbirth (principal); Z37.0 Single live birth; E03.9 Hypothyroidism, unspecified; Z20.822 Contact with and (suspected) exposure to COVID-19; Z3A.40 40 weeks gestation of pregnancy; O99.824 Streptococcus B carrier state complicating childbirth; O70.20 Third degree perineal laceration during delivery, unspecified; O76 Abnormality in fetal heart rate and rhythm complicating labor and delivery; O34.63 Maternal care for abnormality of vagina, third trimester
CPT/HCPCS: 36415; 59050; 59400; 59409; 80053; 84550; 85025; 86850; 86900; 86901; 87635; C9803; G0379; J1200; J1940; J2540; J2590; P9041